=== PATIENT | female | born 1935 | race Caucasian/White ===

== ENCOUNTER 2021-12-30 10:21 | Emergency (ER) | payer MEDICARE, SELFPAY ==
--- NOTE | ~2021-12-30 | XR_ITS ---
XR chest 1V portable DATE: 12/30/2021 10:34 INDICATION: Cough, fever, shortness of breath. History of asthma. Nonsmoker. TECHNIQUE: Portable AP chest on 12/30/2021 at 1032 hours COMPARISON: None FINDINGS: Normal heart size. No hilar or mediastinal enlargement. No pulmonary infiltrate or consolid ation, pleural effusion or pulmonary vascular congestion or pneumothorax. Diffuse osteopenia. Old healed fracture deformity at the left surgical humeral neck. IMPRESSION: No active cardiopulmonary disease Osteopenia Old healed left humeral surgical neck fracture deformity Reviewed, dictated and finalized at location A.
[2021-12-30 10:21] VITALS: BP 137/68; PULSE 102; RESP 21; TEMP 38.5; O2SAT 95
--- NOTE | 2021-12-30 10:27 | ECG_ITS ---
Measurements Intervals [place] Rate: 98 P: 21 GA: 153 QRS: -29 QRSD: 98 T: 44 QT: 359 QTc: 460 Interpretive Statements SINUS RHYTHM POSSIBLE LEFT ATRIAL ENLARGEMENT DELAYED PRECORDIAL R/S TRANSITION BASELINE WANDER- I, II BORDERLINE ECG Electronically Signed On 12-30-2021 15:59:00 CDT by Zach Stanley D.O.
[2021-12-30 10:28] VITALS: PULSE 98
[2021-12-30 10:54] LABS: Basophils Percent Auto 0.4 % (0.2-1.2); Eosinophils Absolute Auto 0.1 K/mm3 (0-0.3); Eosinophils Percent Auto 0.8 % (0-4.4); Hematocrit 38.6 % (37.0-47.0); Hemoglobin 13.1 g/dL (12.0-15.0); Immature Granulocyte Absolute 0.04 K/mm3 (0.00-0.031); Immature Granulocyte Percent A 0.4 % (0-0.5); Lymphocytes Absolute Auto 0.43 K/mm3 (0.9-3.2); Lymphocytes Percent Auto 4.6 % (18.3-44.2); Mean Corpuscular HGB Conc 33.9 g/dl (32-36); Mean Corpuscular Volume 88.3 fl (80-100); Mean Platelet Volume 9.6 fl (7.4-10.4); Monocytes Absolute Auto 0.9 K/mm3 (0.1-0.6); Monocytes Percent Auto 9.3 % (2.6-8.5); Neutrophils Percent Auto 84.5 % (45.5-73.1); Platelet Count Result 195 k/mm3 (150-375); Red Blood Count 4.37 M/mm3 (4.2-5.4); Red Cell Distribution Width 12.6 % (11.5-14.5); White Blood Count 9.4 K/mm3 (4.5-10.0)
[2021-12-30 10:57] LABS: Lipase 58 U/L (23-300)
[2021-12-30 10:58] LABS: Alanine Aminotransferase 16 U/L (6-35); Albumin Level 4.1 g/dL (3.5-5.1); Alkaline Phosphatase 87 U/L (38-126); Anion Gap 6 mmol/L (8-16); Aspartate Amino Transferase 32 U/L (14-36); Bilirubin,Total 0.3 mg/dL (0.2-1.3); Blood Urea Nitrogen 12 mg/dL (7-17); Carbon Dioxide 26 mmol/L (22-30); Chloride 105 mmol/L (98-107); Estimated CRCL calculation 49 ml/min; Estimated Glomerular Filt Rate > 60; Glucose 114 mg/dL (65-110); Potassium 3.8 mmol/L (3.4-5.0); Sodium 137 mmol/L (137-145)
[2021-12-30] MEDS: ACETAMINOPHEN 500 MG TABLET 1000 MG PO (10:59)
[2021-12-30] MEDS: LACTATED RINGERS 1,000 ML 999 ML IV CONT (10:59)
[2021-12-30 11:00] VITALS: O2SAT 94
[2021-12-30 11:04] LABS: INR 1.1; Prothrombin Time 13.3 Seconds (11.1-14.7)
[2021-12-30 11:05] LABS: Partial Thromboplastin Time 30.3 SECONDS (22.3-36.8)
[2021-12-30 11:10] LABS: Troponin I < 0.012 ng/mL (0.000-0.034)
[2021-12-30 11:54] VITALS: TEMP 37.3
[2021-12-30 11:57] VITALS: BP 136/67; PULSE 104; RESP 20; O2SAT 95
[2021-12-30 12:00] LABS: SARS-CoV-2 RNA PCR Positive
--- NOTE | 2021-12-30 12:15 | ED.SOB ---
HPI - SOB/Dyspnea General Chief Complaint: Shortness of Breath/Dyspnea Stated Complaint: diff breathing, cough, COVID+ Time Seen by Provider: 12/30/21 10:27 History of Present Illness HPI Narrative: 86yoF h/o asthma exac p/w some LUAN, she is visiting here from [place], for a , and then when she got here started having some symptoms, home COVID test positive. Patient unable to answer much information but she denies any symptoms at this time other than a cough, per sister she has no nausea or vomiting or diarrhea, has been coughing persistently for the last 2 days, they do not note any fever. Related Data Allergies Allergy/AdvReac Type Severity Reaction Status Date / Time ciprofloxacin [From Cipro] Allergy Unknown Verified 12/30/21 10:50 Review of Systems Review of Systems: CONST: No fever. HEENT: No sore throat C/V: No chest pain RESP: No cough GI: No abdominal pain, nausea, vomiting : No dysuria. M/S: No joint pain. SKIN: No rash. NEURO: [No headache or focal numbness or weakness] PSYCH: [No depression] Exam Narrative: EXAMINATION OF ORGAN SYSTEMS/BODY AREAS: Constitutional: Vital signs per nursing GENERAL:[No acute distress, non-toxic appearing.] HEAD: Normal with no signs of head trauma. EYES: EOMI, conjunctiva normal ENT: Hearing grossly intact LUNGS: Nonlabored breathing. Slightly diminished lung sounds bilaterally with prolonged expiration but no obvious wheezing HEART: Slightly tachycardic ABD: [Soft], [nontender to palpation] EXT: Normal range of motion SKIN: [No rashes or lesions.] NEURO: [Alert, pleasantly confused. No gross focal sensory or strength deficits.] PSYCH: Normal affect Course Course Emergency Course: 86-year-old female presenting with positive COVID test, cough and difficulty breathing, vital signs notable for tachycardia and fever here, exam shows clear lungs all station bilaterally, overall well-appearing patient in no apparent distress was alert and not complaining of any symptoms at this time, differential includes pneumonia versus asthma exacerbation versus COVID. COVID+, patient VS much improved s/p meds and IV fluids, discussed return precautions and discharge plan thoroughly with the sister, patient was also ambulated and maintained O2 sats and was overall much better appearing, I do feel she is stable for discharge home at this time with prescription for Paxlovid provided. All questions answered to patient's family's satisfaction. Vital Signs Vital signs: Vital Signs Temperature 101.3 F H 12/30/21 10:21 Pulse Rate 102 H 12/30/21 10:21 Respiratory Rate 21 H 12/30/21 10:21 Blood Pressure 137/68 12/30/21 10:21 Pulse Oximetry 95 12/30/21 10:21 Oxygen Delivery Room Air 12/30/21 10:21 Temperature 99.1 F 12/30/21 11:54 Pulse Rate 96 12/30/21 12:38 Respiratory Rate 22 H 12/30/21 12:38 Blood Pressure 136/67 12/30/21 12:38 Pulse Oximetry 96 12/30/21 12:38 Oxygen Delivery Room Air 12/30/21 11:00 MDM - SOB/Dyspnea Lab Data Result diagrams: 12/30/21 10:41 12/30/21 10:41 Labs: Lab Results 12/30/21 12/30/21 12/30/21 Range/Units 10:41 10:41 10:41 WBC 9.4 (4.5-10.0) K/mm3 RBC 4.37 (4.2-5.4) M/mm3 Hgb 13.1 (12.0-15.0) g/dL Hct 38.6 (37.0-47.0) % MCV 88.3 (80-100) fl MCH 30.0 (26-34) pg MCHC 33.9 (32-36) g/dl RDW 12.6 (11.5-14.5) % Plt Count 195 (150-375) k/mm3 MPV 9.6 (7.4-10.4) fl Immature Gran % (Auto) 0.4 (0-0.5) % Neut % (Auto) 84.5 H (45.5-73.1) % Lymph % (Auto) 4.6 L (18.3-44.2) % Edwards % (Auto) 9.3 H (2.6-8.5) % Eos % (Auto) 0.8 (0-4.4) % Baso % (Auto) 0.4 (0.2-1.2) % Lymph # (Auto) 0.43 L (0.9-3.2) K/mm3 Edwards # (Auto) 0.9 H (0.1-0.6) K/mm3 Eos # (Auto) 0.1 (0-0.3) K/mm3 Baso # (Auto) 0.0 (0.0-0.1) K/mm3 Abs Immat Gran (auto) 0.04 H (0.00-0.031) K/mm3 Absolute Neuts (auto) 8.0 H (1.3-6.7
[2021-12-30 12:38] VITALS: BP 136/67; PULSE 96; RESP 22; O2SAT 96
== END 2021-12-30 12:30 | disposition home or self-care (01) ==
PROVIDERS: Emergency Provider Emergency Medicine
DX: U07.1 COVID-19 (principal); J45.909 Unspecified asthma, uncomplicated
CPT/HCPCS: 36415; 71045; 80053; 83690; 84484; 85025; 85610; 85730; 93005; 96360; 99284; A9270; C9803; J7120; U0003; U0005